=== PATIENT | male | born 1995 ===

== ENCOUNTER 2017-07-03 07:18 | Emergency (ER) | payer BC ==
--- NOTE | 2017-07-03 07:41 | UC ---
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 He c/o cold feet and hands for the past 2 weeks and extreme, inmovilizing fatigue in the past 3 days. States his fatigue has been accompanied by depression and feelings he is overwhelmed, which he says is totally uncharacteristic of him. Denies any other constitutional symptoms. Denies problems with digestion, urination, denies ETOH, cig or recreational drugs, denies recent sexual contact - History of Current Complaint Chief Complaint: UCGeneralIllness Stated Complaint: FATIQUE Time Seen by Provider: 07/03/17 07:30 - Allergy/Home Medications Allergies/Adverse Reactions: Allergies Allergy/AdvReac Type Severity Reaction Status Date / Time No Known Allergies Allergy Verified 07/03/17 07:26 Home Medications: Home Medications NK [No Home Medications Reported] 07/03/17 [History Confirmed 07/03/17] PMH/Surg Hx/FS Hx/Imm Hx Previously Healthy: Yes - Surgical History Surgical History: None - Social History Alcohol Use: None Substance Use Type: None Smoking Status (MU): Never Smoked Tobacco Review of Systems Constitutional: Fatigue Psychological: Anxious, Depressed All Other Systems Reviewed And Are Negative: Yes Physical Exam Triage Information Reviewed: Yes Appearance: Well-Appearing Vital Signs: Initial Vital Signs Temp 98.1 F 07/03/17 07:23 Pulse 65 07/03/17 07:23 Resp 16 07/03/17 07:23 BP 134/75 07/03/17 07:23 Pulse Ox 100 07/03/17 07:23 Vital Signs Reviewed: Yes Eye Exam: Normal ENT Exam: Normal Dental Exam: Normal Neck exam: Normal Respiratory Exam: Normal Cardiovascular Exam: Normal Abdominal Exam: Normal Musculoskeletal Exam: Normal Neurological Exam: Normal Psychological Exam: Normal Skin Exam: Normal Course/Dx - Course Course Of Treatment: Hx of recent onset of fatigue, work up ordered to follow up at [facility]. Supplementation with vitamin B12 [id number] mcg per day. - Differential Dx - Multi-Symptom Provider Diagnoses: fatigue Discharge - Discharge Plan Condition: Stable Disposition: HOME Patient Education Materials: Fatigue (ED) Referrals: [facility] [facility] [Outside] [facility] [Outside] - 1 Week
[2017-07-03 14:31] LABS: Hematocrit 44 % (42-52); Hemoglobin 14.4 g/dl (14.0-18.0); Mean Corpuscular HGB Conc 33 g/dl (31-36); Mean Corpuscular Hemoglobin 29 pg (27-31); Mean Corpuscular Volume 87 fL (80-94); Mean Platelet Volume 10 um3 (7.4-10.4); Red Cell Distribution Width 13 % (10.5-15); White Blood Count 5.1 10^3/ul (3.5-10.8)
[2017-07-03 14:42] LABS: Albumin 5.2 g/dL (3.2-5.2); BUN/Creatinine Ratio 18.5 (8-20); Calcium 10.3 mg/dL (8.6-10.3); EGFR African American 113.3 (>60); EGFR Non-African American 88.1 (>60); Globulin 2.7 g/dL (2-4); Potassium 4.8 mmol/L (3.5-5.0); Total Bilirubin 0.3 mg/dL (0.2-1.0); Total Protein 7.9 g/dL (6.4-8.9)
[2017-07-03 14:55] LABS: TSH (Thyroid Stimulating Horm) 4.69 mcIU/mL (0.34-5.60)
[2017-07-03 14:57] LABS: Free T4 0.85 ng/dL (0.61-1.12)
[2017-07-03 15:07] LABS: Folate 5.27 ng/mL (>3.99)
== END 2017-07-03 08:46 | disposition home or self-care (01) ==
LOC: UCEAST 07:18
DX: R53.83 Other fatigue (principal)
CPT/HCPCS: 36415; 80053; 82607; 82746; 84439; 84443; 85025; 86703; 99201; G0463